=== PATIENT | female | born 1985 | race Caucasian/White ===

== ENCOUNTER → 2017-06-21 | Emergency (ER) | payer OTHER ==
[~2017-06-21] VITALS: Ht 180.3 cm; Wt 68.0 kg
[~2017-06-21] MED LIST: FLAGYL500 MG PO; MEDROL4 M1 PO
== END ==
LOC: ED 19:37
DX: L50.9 Urticaria, unspecified (principal); F17.200 Nicotine dependence, unspecified, uncomplicated; Z79.899 Other long term (current) drug therapy
CPT/HCPCS: 99283

== ENCOUNTER 2018-03-08 23:27 | Emergency (ER) | payer OTHER ==
[~2018-03-08] VITALS: Ht 180.3 cm; Wt 68.0 kg
== END 2018-03-09 00:49 | disposition home or self-care (01) ==
LOC: ED 23:27
DX: F41.0 Panic disorder [episodic paroxysmal anxiety] (principal); F17.200 Nicotine dependence, unspecified, uncomplicated
CPT/HCPCS: 96372; 99282; J2060

== ENCOUNTER 2018-10-05 20:57 | Emergency (ER) | payer OTHER ==
[~2018-10-05] VITALS: Ht 180.3 cm; Wt 71.2 kg
== END 2018-10-05 22:38 | disposition home or self-care (01) ==
LOC: ED 20:57
DX: O99.89 Other specified diseases and conditions complicating pregnancy, childbirth and the puerperium (principal); R42 Dizziness and giddiness; R00.2 Palpitations; Z3A.01 Less than 8 weeks gestation of pregnancy; Z87.891 Personal history of nicotine dependence
CPT/HCPCS: 80053; 81001; 84703; 85025; 99284; J7030

== ENCOUNTER 2019-05-15 08:09 | Inpatient (IN) | payer OTHER ==
[~2019-05-15] VITALS: Ht 180.3 cm; Wt 93.0 kg
== END 2019-05-16 18:05 | disposition home or self-care (01) | DRG 807 ==
LOC: FBC 08:09
PROVIDERS: ADMIT Obstetrics & Gynecology
PROC: 10E0XZZ Delivery of Products of Conception, External Approach (ICD-10-PCS; principal; 2019-05-15)
PROC: 10907ZC Drainage of Amniotic Fluid, Therapeutic from Products of Conception, Via Natural or Artificial Opening (ICD-10-PCS; 2019-05-15)
PROC: 00HU33Z Insertion of Infusion Device into Spinal Canal, Percutaneous Approach (ICD-10-PCS; 2019-05-15)
PROC: 3E0R3BZ Introduction of Anesthetic Agent into Spinal Canal, Percutaneous Approach (ICD-10-PCS; 2019-05-15)
DX: O69.81X0 Labor and delivery complicated by cord around neck, without compression, not applicable or unspecified (principal); Z37.0 Single live birth; Z3A.39 39 weeks gestation of pregnancy; O99.334 Smoking (tobacco) complicating childbirth; F17.210 Nicotine dependence, cigarettes, uncomplicated; Z86.19 Personal history of other infectious and parasitic diseases
CPT/HCPCS: 01960; 36415; 85027; J2590; J2795; J7120

== ENCOUNTER 2019-06-11 06:19 | Emergency (ER) | payer OTHER ==
[~2019-06-11] VITALS: Ht 180.3 cm; Wt 81.6 kg
--- OUTSIDE RECORDS SUMMARY | ~2019-06-11 | XMS | Clinical Summary ---
Demographics + + + | Address | [address] | | | [place] [address] | + + + | Home Phone | | + + + | Preferred Language | Unknown | + + + | Marital Status | Single | + + + | Lutheran Affiliation | 1013 | + + + | Race | Unknown | + + + | Ethnic Group | Unknown | + + + Author + + + | Author | [facility] | | | and [place] | + + + | Organization | [facility] | | | and [place] | + + + | Address | Unknown | + + + | Phone | Unavailable | + + + Support + + +---------+ + | Name | Relationship | Address | Phone | + + +---------+ + | DOMINGO BACON | ECON | Unknown | | + + +---------+ + Care Team Providers + +------+ + | Care Portfolio Management Marketing Name | Role | Phone | + +------+ + PCP | Unavailable | + +------+ + Allergies Not on File Medications Not on file Active Problems Not on file Social History + +-------+ +--------+------+ | Tobacco Use | Types | Packs/Day | Years | Date | | | | | Used | | + +-------+ +--------+------+ | Never Assessed | | | | | + +-------+ +--------+------+ + + + | Sex Assigned at | Date Recorded | | | | + + + | Not on file | | + + + + + + + | Job Start Date | Occupation | Industry | + + + + | Not on file | Not on file | Not on file | + + + + + + + + | Travel History | Travel Start | Travel End | + + + + + + | No recent travel history available. | + + Last Filed Vital Signs Not on file Plan of Treatment + + + + + | Health Maintenance | Due Date | Last Done | Comments | + + + + + | Vaccine: | | | | | Dtap/Tdap/Td (1 - | 5 | | | | Tdap) | | | | + + + + + | Cervical Cancer | | | | | Screening (Pap) | 6 | | | + + + + + | Vaccine: Influenza | | | | | (#1) | 9 | | | + + + + + Results Not on filefrom Last 3 Months"
--- OUTSIDE RECORDS SUMMARY | ~2019-06-11 | XMS | Clinical Summary ---
Demographics + + + | Address | [address] | | | [place] [address] | + + + | Home Phone | | + + + | Preferred Language | Unknown | + + + | Marital Status | Single | + + + | Hindu Affiliation | 1013 | + + + | Race | Unknown | + + + | Ethnic Group | Unknown | + + + Author + + + | Author | [facility] | | | and [place] | + + + | Organization | [facility] | | | and [place] [...] Team Providers + +------+ + | Care Baseball Coach Name | Role | Phone | + [...]
[2019-06-11] MEDS ORDERED: AMOX TR-K CLV1 EAC1 PO (06:30)
[2019-06-11] MEDS ORDERED: VENTOLIN HFA18 GM INH (08:02)
[2019-06-11] MEDS ORDERED: PREDNISONE20 MG PO (08:02)
[2019-06-11] MEDS ORDERED: ZITHROMAX250 MG PO (08:02)
== END 2019-06-11 08:15 | disposition home or self-care (01) ==
LOC: ED 06:19
DX: O99.53 Diseases of the respiratory system complicating the puerperium (principal); J40 Bronchitis, not specified as acute or chronic; J98.01 Acute bronchospasm; O99.335 Smoking (tobacco) complicating the puerperium; F17.200 Nicotine dependence, unspecified, uncomplicated
CPT/HCPCS: 71046; 94640; 99283-25; 99406; J7512

== ENCOUNTER 2019-09-10 21:43 | Emergency (ER) | payer OTHER ==
[~2019-09-10] VITALS: Ht 180.3 cm; Wt 77.1 kg
--- OUTSIDE RECORDS SUMMARY | ~2019-09-10 | XMS | Clinical Summary ---
Demographics + + + | Address | [address] | | | [place] [address] | + + + | Home Phone | | + + + | Preferred Language | Unknown | + + + | Marital Status | Single | + + + | Scientology Affiliation | 1013 | + + + | Race | Unknown | + + + | Ethnic Group | Unknown | + + + Author + + + | Author | [facility] | | | and [place] | + + + | Organization | [facility] | | | and [place] | + + + | Address | Unknown | + + + | Phone | Unavailable | + + + Support + + +---------+ + | Name | Relationship | Address | Phone | + + +---------+ + | Joycelyn Núñez | ECON | Unknown | | + + +---------+ + Care Team Providers + +------+ + | Care Instrument Technician Helper Name | Role | Phone | + [...] | | | Dtap/Tdap/Td (1 - | 7 | | | | Tdap) | | [...]
--- OUTSIDE RECORDS SUMMARY | ~2019-09-10 | XMS | Encounter Summary ---
Demographics + + + | Address | [address] | | | [place] [address] | + + + | Home Phone | | + + + | Preferred Language | Unknown | + + + | Marital Status | Single | + + + | Catholic Affiliation | 1013 | + + + | Race | Unknown | + + + | Ethnic Group | Unknown | + + + Author + + + | Author | [facility] | | | and [place] | + + + | Organization | [facility] | | | and [...] Team Providers + +------+ + | Care Coal Tower Operator Name | Role | Phone | + +------+ + PCP | Unavailable | + +------+ + Encounter Details +--------+ + + + + | Date | Type | Department | Care Team | Description | +--------+ + + + + | 07/09/ | Hospital | [facility] | | | | 2004 | Encounter | MED CTR XRAY [address] | | | | | [address] | | | | | | [place] [address] | | | | | | [phone] | | | +--------+ + + + [...]
--- OUTSIDE RECORDS SUMMARY | ~2019-09-10 | XMS | Clinical Summary ---
Demographics + + + | Address | [address] | | | [place] [address] | + + + | Home Phone | | + + + | Preferred Language | Unknown | + + + | Marital Status | Single | + + + | Denominational Affiliation | 1013 | + + + | Race | Unknown | + + + | Ethnic Group | Unknown | + + + Author + + + | Author | [facility] | | | and [place] | + + + | Organization | [facility] | | | and [place] [...] Team Providers + +------+ + | Care Aircraft Engine Mechanic Name | Role | Phone | + [...]
--- OUTSIDE RECORDS SUMMARY | ~2019-09-10 | XMS | Encounter Summary ---
Demographics + + + | Address | [address] | | | [place] [address] | + + + | Home Phone | | + + + | Preferred Language | Unknown | + + + | Marital Status | Single | + + + | Anabaptism Affiliation | 1013 | + + + | Race | Unknown | + + + | Ethnic Group | Unknown | + + + Author + + + | Author | [facility] | | | and [place] | + + + | Organization | [facility] | | | [...] Team Providers + +------+ + | Care Service Aide Name | Role | Phone | + +------+ + PCP | Unavailable | + +------+ + Encounter Details +--------+ + + + + | Date | Type | Department | Care Team | Description | +--------+ + + + + | 07/09/ | Hospital | [facility] | | | | 2004 | Encounter | MED CTR XRAY [address] | | | | | [address] | | | | | | [place] [address] | | | | | | [phone] | | | +--------+ + + + [...]
[~2019-09-10 21:43] MED LIST changes: +AMOX TR-K CLV1 EAC1 PO; +PREDNISONE20 MG PO; +VENTOLIN HFA18 GM INH; +ZITHROMAX250 MG PO
== END 2019-09-10 22:06 | disposition home or self-care (01) ==
LOC: ED 21:43
DX: L24.3 Irritant contact dermatitis due to cosmetics (principal); T49.8X1A Poisoning by other topical agents, accidental (unintentional), initial encounter; F41.9 Anxiety disorder, unspecified; F17.200 Nicotine dependence, unspecified, uncomplicated
CPT/HCPCS: 99283

== ENCOUNTER 2019-11-09 04:25 | Emergency (ER) | payer OTHER ==
[~2019-11-09] VITALS: Ht 180.3 cm; Wt 77.1 kg
--- NOTE | 2019-11-09 15:04 | EKG ---
[facility] [address] [place], [place] [address] Signed Sinus tachycardia with occasional premature ventricular complexes Otherwise normal ECG No previous ECGs available Confirmed by SANKET ABDALLA MD ([id number]) on 11/09/2019 3:04:30 PM Electronically Signed By: SANKET ABDALLA MD 11/09/19 1504 PATIENT NAME: DARIO BACON Electrocardiogram DATE OF : 85 PHYSICIAN: SANKET ABDALLA MD REPORT #: [id number] REPORT IS CONFIDENTIAL AND NOT TO BE RELEASED WITHOUT AUTHORIZATION
== END 2019-11-09 13:08 | disposition home or self-care (01) ==
LOC: ED 04:25
DX: T42.4X2A Poisoning by benzodiazepines, intentional self-harm, initial encounter (principal); T40.5X2A Poisoning by cocaine, intentional self-harm, initial encounter; F17.200 Nicotine dependence, unspecified, uncomplicated
CPT/HCPCS: 80053; 80176; 81001; 84443; 84703; 85025; 93005; 93010; 96360; 99285-25; G0480; J7030

== ENCOUNTER 2019-11-30 04:30 | Emergency (ER) | payer OTHER ==
[~2019-11-30] VITALS: Ht 180.3 cm; Wt 74.8 kg
--- OUTSIDE RECORDS SUMMARY | 2019-11-30 04:32 | XMS ---
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 Constantine has no Care Guidelines for this patient. [facility] MO.) [facility] NOTE: Visits indicate total known visits. ED/C VISIT TRACKING (12 MO.) 11/30/2019 04:[address] [facility] [place] TYPE: Emergency COMPLAINT: - ANXIETY,PANIC ATTACK 11/09/2019 04:25 [facility] [place] TYPE: Emergency COMPLAINT: - MEDICAL CLEARANCE DIAGNOSES: - Poisoning by cocaine, intentional self-harm, initial encounte - Poisoning by benzodiazepines, intentional self-harm, initial - Poisoning by benzodiazepines, intentional self-harm, initial - Nicotine dependence, unspecified, uncomplicated 09/10/2019 21:43 [facility] [place] TYPE: Emergency COMPLAINT: - ALLERGIC REACTION DIAGNOSES: - Poisoning by other topical agents, accidental (unintentional) - Anxiety disorder, unspecified - Nicotine dependence, unspecified, uncomplicated - Irritant contact dermatitis due to cosmetics 06/11/2019 06:19 [facility] [place] TYPE: Emergency COMPLAINT: - SOB DIAGNOSES: - Cough - Diseases of the respiratory system complicating the puerperiu - Nicotine dependence, unspecified, uncomplicated - Bronchitis, not specified as acute or chronic - Smoking (tobacco) complicating the puerperium - Acute bronchospasm INPATIENT VISIT TRACKING (12 MO.) 05/15/2019 08:09 [facility] [place] TYPE: [facility] COMPLAINT: - INDUCTION DIAGNOSES: - Smoking (tobacco) complicating , third trimester - 39 weeks gestation of - Nicotine dependence, cigarettes, uncomplicated - Personal history of other infectious and parasitic diseases - Single live - Smoking (tobacco) complicating childbirth - Labor and delivery complicated by cord around neck, without c [email or web address]
[2019-11-30] MEDS ORDERED: BUPROPION XL150 MG PO (04:45)
[2019-11-30] MEDS ORDERED: BUSPIRONE HCL5 MG PO (04:45)
== END 2019-11-30 07:01 | disposition home or self-care (01) ==
LOC: ED 04:30
DX: F41.9 Anxiety disorder, unspecified (principal); F32.9 Major depressive disorder, single episode, unspecified; F17.200 Nicotine dependence, unspecified, uncomplicated; Z79.899 Other long term (current) drug therapy
CPT/HCPCS: 81001; 84703; 96372; 99283; J2060

== ENCOUNTER 2020-01-25 21:30 | Emergency (ER) | payer OTHER ==
[~2020-01-25] VITALS: Ht 180.3 cm; Wt 72.6 kg
--- OUTSIDE RECORDS SUMMARY | ~2020-01-25 | XMS | Clinical Summary ---
Demographics + + + | Address | [address] | | | [place] [address] | + + + | Home Phone | | + + + | Preferred Language | Unknown | + + + | Marital Status | Single | + + + | Episcopalian Affiliation | 1013 | + + + | Race | Unknown | + + + | Ethnic Group | Unknown | + + + Author + + + | Author | [facility] | | | and [place] | + + + | Organization | [facility] | | | and [place] [...] Team Providers + +------+ + | Care Biophysics Professor Name | Role | Phone | + [...] Vaccine: Influenza | | | | | (Season Ended) | 0 | | | + + + + + Results Not on filefrom Last 3 Months"
--- OUTSIDE RECORDS SUMMARY | ~2020-01-25 | XMS | Encounter Summary ---
Demographics + + + | Address | [address] | | | [place] [address] | + + + | Home Phone | | + + + | Preferred Language | Unknown | + + + | Marital Status | Single | + + + | Taoist Affiliation | 1013 | + + + | Race | Unknown | + + + | Ethnic Group | Unknown | + + + Author + + + | Author | [facility] | | | and [place] | + + + | Organization | [facility] | | | and [place] | [...] Team Providers + +------+ + | Care Rocket Engine Tester Name | Role | Phone | + +------+ + PCP | Unavailable | + +------+ + Encounter Details +--------+ + + + + | Date | Type | Department | Care Team | Description | +--------+ + + + + | 07/09/ | Hospital | [facility] | | | | 2004 | Encounter | MED CTR XRAY [address] | | | | | | [address] | | | | | | [place] [address] | | | | | | [phone] | | | +--------+ + + + + Social History + +-------+ +--------+------+ | Tobacco [...] recent travel history available. | + + documented as of this encounter Plan of Treatment Not on filedocumented as of this encounter Visit Diagnoses Not on filedocumented in this encounter"
--- OUTSIDE RECORDS SUMMARY | ~2020-01-25 | XMS | Encounter Summary ---
Demographics + + + | Address | [address] | | | [place] [address] | + + + | Home Phone | | + + + | Preferred Language | Unknown | + + + | Marital Status | Single | + + + | Worship Affiliation | 1013 | + + + | Race | Unknown | + + + | Ethnic Group | Unknown | + + + Author + + + | Author | [facility] | | | and [place] | + + + | Organization | [facility] | | | and [place] [...] Team Providers + +------+ + | Care Electrical Equipment Assembler Name | Role | Phone | + +------+ + PCP | Unavailable | + +------+ + Encounter Details +--------+ + + + + | Date | Type | Department | Care Team | Description | +--------+ + + + + | 07/09/ | Hospital | [facility] | | | | 2004 | Encounter | MED CTR XRAY [address] | | | | | | [address] | | | | | | [place] [address] | | | | | | [phone] | | | +--------+ + + + [...]
--- OUTSIDE RECORDS SUMMARY | ~2020-01-25 | XMS | Clinical Summary ---
Demographics + + + | Address | [address] | | | [place] [address] | + + + | Home Phone | | + + + | Preferred Language | Unknown | + + + | Marital Status | Single | + + + | Hinduism Affiliation | 1013 | + + + | Race | Unknown | + + + | Ethnic Group | Unknown | + + + Author + + + | Author | [facility] | | | and [place] | + + + | Organization | [facility] | | | and [...] Team Providers + +------+ + | Care Animal Eviscerator Name | Role | Phone | + [...]
[~2020-01-25 21:30] MED LIST changes: +BUPROPION XL150 MG PO; +BUSPIRONE HCL5 MG PO
[2020-01-25] MEDS ORDERED: CLONIDINE HCL0.1 MG PO (21:45)
== END 2020-01-25 22:46 | disposition home or self-care (01) ==
LOC: ED 21:30
DX: F41.0 Panic disorder [episodic paroxysmal anxiety] (principal); F15.90 Other stimulant use, unspecified, uncomplicated; F17.200 Nicotine dependence, unspecified, uncomplicated; F32.9 Major depressive disorder, single episode, unspecified; Z79.899 Other long term (current) drug therapy
CPT/HCPCS: 99283

== ENCOUNTER 2020-07-03 03:11 | Emergency (ER) | payer OTHER ==
[~2020-07-03] VITALS: Ht 180.3 cm; Wt 72.6 kg
[~2020-07-03 03:11] MED LIST changes: +CLONIDINE HCL0.1 MG PO
== END 2020-07-03 03:53 | disposition home or self-care (01) ==
LOC: ED 03:11
DX: F41.9 Anxiety disorder, unspecified (principal); F14.10 Cocaine abuse, uncomplicated; F17.200 Nicotine dependence, unspecified, uncomplicated
CPT/HCPCS: 99283

== ENCOUNTER 2022-05-06 16:46 | Emergency (ER) | payer OTHER ==
[~2022-05-06] VITALS: Ht 180.3 cm; Wt 72.3 kg
--- NOTE | ~2022-05-06 | EKG ---
[facility] [address] [place], [place] [address] Draft EK completed, results pending confirmation PATIENT NAME: DARIO BACON RADHA Electrocardiogram DATE OF : 85 PHYSICIAN: PRELIMINARY REPORT #: [id number] REPORT IS CONFIDENTIAL AND NOT TO BE RELEASED WITHOUT AUTHORIZATION
== END 2022-05-06 19:00 | disposition left against medical advice (07) ==
LOC: ED 16:46
DX: F41.9 Anxiety disorder, unspecified (principal); R07.9 Chest pain, unspecified; Z53.21 Procedure and treatment not carried out due to patient leaving prior to being seen by health care provider
CPT/HCPCS: 93005; 93010

== ENCOUNTER 2022-07-23 16:21 | Emergency (ER) | payer OTHER ==
[~2022-07-23] VITALS: Ht 180.3 cm; Wt 74.5 kg
[2022-07-23] MEDS ORDERED: VENTOLIN HFA18 GM INH (16:44)
== END 2022-07-23 18:40 | disposition home or self-care (01) ==
LOC: ED 16:21
DX: U07.1 COVID-19 (principal); F17.200 Nicotine dependence, unspecified, uncomplicated
CPT/HCPCS: 87502; 94640; 94664; 99283-25; A9270; C9803; U0003

== ENCOUNTER 2022-08-03 20:16 | Emergency (ER) | payer OTHER ==
[~2022-08-03] VITALS: Ht 180.3 cm; Wt 73.0 kg
--- OUTSIDE RECORDS SUMMARY | 2022-08-03 20:20 | XMS ---
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 - Patient with suicidal and/or homicidal ideations eloped. - Patient eloped with IV in place. Details: PATIENT LWBS CRITERIA MET - [facility] - 2 Visits in 30 Days CARE PROVIDERS [place] 12/01/2019-Current PHONE: [phone] Constantine has no Care Guidelines for this patient. Care History Medical/Surgical 12/01/2019 [facility] - PATIENT HAS A FOLLOW UP APT WITH DR GIL ON 12/25/2019. Jenn VISIT COUNT (12 MO.) 3 [facility] TOTAL 3 NOTE: Visits indicate total known visits. ED/UCC VISIT TRACKING (12 MO.) 08/03/2022 20:17 [facility] TYPE: Emergency COMPLAINT: - CHEST PRESSURE 07/23/2022 16:24 [facility] [place] TYPE: Emergency COMPLAINT: - FLU SYMPTOMS DIAGNOSES: - COVID-19 - Cough, unspecified - Nicotine dependence, unspecified, uncomplicated 05/06/2022 16:47 [facility] [place] TYPE: Emergency COMPLAINT: - CHEST PAIN,DIFF BREATHING DIAGNOSES: - Essential (primary) hypertension - Procedure and treatment not carried out due to patient leaving prior to being seen by health care provider - Anxiety disorder, unspecified - Chest pain, unspecified INPATIENT VISIT TRACKING (12 MO.) No inpatient visits to display in this time frame [email or web address]
[2022-08-03] MEDS ORDERED: METRONIDAZOLE500 MG PO (20:32)
== END 2022-08-03 21:09 | disposition home or self-care (01) ==
LOC: ED 20:16
DX: U07.1 COVID-19 (principal); F17.200 Nicotine dependence, unspecified, uncomplicated; Z79.899 Other long term (current) drug therapy
CPT/HCPCS: 71045; 99284-25

== ENCOUNTER 2022-12-01 21:22 | Emergency (ER) | payer OTHER ==
[~2022-12-01] VITALS: Ht 180.3 cm; Wt 71.0 kg
[~2022-12-01 21:22] MED LIST changes: +METRONIDAZOLE500 MG PO
[2022-12-01] MEDS ORDERED: BUSPIRONE HCL5 MG PO (21:32)
[2022-12-01] MEDS ORDERED: BENADRYL ALLERG25 MG PO (21:33)
[2022-12-01] MEDS ORDERED: ADVIL200 M1 PO (21:33)
[2022-12-01] MEDS ORDERED: VENTOLIN HFA18 GM INH (21:38)
== END 2022-12-01 21:49 | disposition home or self-care (01) ==
LOC: ED 21:22
DX: J45.901 Unspecified asthma with (acute) exacerbation (principal); F17.200 Nicotine dependence, unspecified, uncomplicated; Z79.899 Other long term (current) drug therapy
CPT/HCPCS: 99284